=== PATIENT | female | born 1995 | race Caucasian/White ===

== ENCOUNTER 2018-10-20 07:54 | Emergency (ER) | payer SELFPAY ==
--- NOTE | 2018-10-20 08:55 | ER ---
Nurse's Notes [facility] Name: Blake Thakur Age: 23 yrs Sex: Female : 1995 Arrival Date: 10/20/2018 Time: 08:00 Bed 16 Private MD: Diagnosis: Acute upper respiratory infection, unspecified Presentation: 10/20 08:06 Presenting complaint: Patient states: Reports cough, congestion, bodyaches, fever, and rb1 sore throat x one day. Transition of care: patient was not received from another setting of care. Onset of symptoms was October 19, 2018. Risk Assessment: Do you want to hurt yourself or someone else? Patient reports no desire to harm self or others. Initial Sepsis Screen: Does the patient meet any 2 criteria? No. Patient's initial sepsis screen is negative. Does the patient have a suspected source of infection? Yes: Other: cough. Care prior to arrival: None. 08:06 Method Of Arrival: Ambulatory rb1 08:06 Acuity: NICHO 3 rb1 Triage Assessment: 08:06 General: Appears in no apparent distress. comfortable, Behavior is calm, cooperative, rb1 Reports fever for feeling ill for 1-2 days, fatigue for 1-2 days. Pain: Complains of pain in generalized body aches Pain currently is 6 out of 10 on a pain scale. Pain began 1 day ago. EENT: Reports sore throat. Neuro: Level of Consciousness is awake, alert, obeys commands, Oriented to person, place, time, situation. Cardiovascular: Capillary refill < 3 seconds is brisk in bilateral fingers. Respiratory: Reports cough that is non-productive, Airway is patent Respiratory effort is even, unlabored, Respiratory pattern is regular, symmetrical. GI: No signs and/or symptoms were reported involving the gastrointestinal system. : No signs and/or symptoms were reported regarding the genitourinary system. Derm: Skin is pink, warm \T\ dry. Musculoskeletal: Range of motion: intact in all extremities. 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 - Ebola Screening: : Patient negative for fever greater than or equal to 101.5 degrees Fahrenheit, and additional compatible Ebola Virus Disease symptoms. - Social history:: Smoking status: Patient/guardian denies using tobacco. Screenin:06 Abuse screen: Denies threats or abuse. Nutritional screening: No deficits noted. rb1 Tuberculosis screening: No symptoms or risk factors identified. Fall Risk None identified. Assessment: 08:06 General: See Triage assessment. rb1 09:00 Reassessment: Patient appears in no apparent distress at this time. No changes from rb1 previously documented assessment. Vital Signs: 08:06 BP 139 / 80; Pulse 97; Resp 16; Temp 99.6(O); Pulse Ox 100% on R/A; Weight 73.94 kg rb1 (R); Height 5 ft. 6 in. (167.64 cm); Pain 6/10; 09:00 BP 137 / 77; Pulse 89; Resp 16; Pulse Ox 100% ; rb1 08:06 Body Mass Index 26.31 (73.94 kg, 167.64 cm) rb1 ED Course: 08:00 Patient arrived in ED. as 08:03 Vicki Schwarz F[facility]-C [facility] kb 08:03 Puma Albrecht MD is Attending Physician. kb 08:06 Arm band placed on right wrist. rb1 08:06 Patient has correct armband on for positive identification. Bed in low position. Call rb1 light in reach. Side rails up X 1. Pulse ox on. NIBP on. 08:26 Hamida Padilla, RN is Primary Nurse. rb1 08:26 Flu Sent. rb1 08:26 Strep Sent. rb1 08:28 Triage completed. rb1 09:07 No provider procedures requiring assistance completed. Patient did not have IV access rb1 during this emergency room visit. Administered Medications: No medications were administered Outcome: 08:54 Discharge ordered by . kb 09:07 Discharged to home ambulatory. rb1 09:07 Condition: good 09:07 Discharge instructions given to patient, family, Instructed on discharge instructions, follow up and referral plans. Demonstrated understanding of instructions, follow-up care. 09:08 Patient left the ED. dm5 Signatures: Vicki Schwarz FNP-C FNP-Ckb Markwardt, Deana, RN RN dm5 Kaelyn Farley Rebecca, RN RN rb1
--- NOTE | 2018-10-20 08:55 | EDPHYS ---
Physician Documentation [facility] Name: Blake Thakur Age: 23 yrs Sex: Female : 1995 Arrival Date: 10/20/2018 Time: 08:00 Bed 16 Private MD: ED Physician Puma Albrecht HPI: 10/20 08:53 This 23 yrs old Female presents to ER via Ambulatory with complaints of Flu kb Symptoms. 08:53 The patient or guardian reports cough, that is intermittent, described as mild, with no kb sputum, flu symptoms, low-grade fever, myalgias. Onset: The symptoms/episode began/occurred yesterday. Severity of symptoms: At their worst the symptoms were moderate. Modifying factors: The symptoms are alleviated by nothing, the symptoms are aggravated by nothing. Associated signs and symptoms: Pertinent positives: earache, fever, rhinorrhea, sore throat. The patient has not experienced similar symptoms in the past. The patient has not recently seen a physician. 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 - Ebola Screening: : Patient negative for fever greater than or equal to 101.5 degrees Fahrenheit, and additional compatible Ebola Virus Disease symptoms. - Social history:: Smoking status: Patient/guardian denies using tobacco. ROS: 08:53 Neck: Negative for injury, pain, and swelling, Cardiovascular: Negative for chest pain, kb palpitations, and edema, Abdomen/GI: Negative for abdominal pain, nausea, vomiting, diarrhea, and constipation, Back: Negative for injury and pain, MS/Extremity: Negative for injury and deformity, Skin: Negative for injury, rash, and discoloration, Neuro: Negative for headache, weakness, numbness, tingling, and seizure. 08:53 Constitutional: Positive for body aches, chills, fatigue, fever, malaise, Negative for poor PO intake, weight loss. 08:53 ENT: Positive for rhinorrhea, sinus congestion, sore throat. 08:53 Respiratory: Positive for cough, Negative for dyspnea on exertion, hemoptysis, orthopnea, pleurisy, shortness of breath, sputum production, wheezing. Exam: 08:53 Constitutional: This is a well developed, well nourished patient who is awake, alert, kb and in no acute distress. Head/Face: Normocephalic, atraumatic. ENT: Nares patent. No nasal discharge, no septal abnormalities noted. Tympanic membranes are normal and external auditory canals are clear. Oropharynx with no redness, swelling, or masses, exudates, or evidence of obstruction, uvula midline. Mucous membranes moist. Neck: Trachea midline, no thyromegaly or masses palpated, and no cervical lymphadenopathy. Supple, full range of motion without nuchal rigidity, or vertebral point tenderness. No Meningismus. Chest/axilla: Normal chest wall appearance and motion. Nontender with no deformity. No lesions are appreciated. Cardiovascular: Regular rate and rhythm with a normal S1 and S2. No gallops, murmurs, or rubs. Normal PMI, no JVD. No pulse deficits. Respiratory: Lungs have equal breath sounds bilaterally, clear to auscultation and percussion. No rales, rhonchi or wheezes noted. No increased work of breathing, no retractions or nasal flaring. Abdomen/GI: Soft, non-tender, with normal bowel sounds. No distension or tympany. No guarding or rebound. No evidence of tenderness throughout. Skin: Warm, dry with normal turgor. Normal color with no rashes, no lesions, and no evidence of cellulitis. MS/ Extremity: Pulses equal, no cyanosis. Neurovascular intact. Full, normal range of motion. Neuro: Awake and alert, GCS 15, oriented to person, place, time, and situation. Cranial nerves II-XII grossly intact. Motor strength 5/5 in all extremities. Sensory grossly intact. Cerebellar exam normal. Normal gait. Vital Signs: 08:06 BP 139 / 80; Pulse 97; Resp 16; Temp 99.6(O); Pulse Ox 100% on R/A; Weight 73.94 kg rb1 (R); Height 5 ft. 6 in. (167.64 cm); Pain 6/10; 09:00 BP 137 / 77; Pulse 89; Resp 16; Pulse Ox 100% ; rb1 08:06 Body Mass Index 26.31 (73.94 kg, 167.64 cm) rb1 MDM: 08:04 Patient medically screened. kb 08:53 Data reviewed: vital signs, nurses notes. Data interpreted: Pulse oximetry: on room air kb is 100 %. Interpretation: normal. Counseling: I had a detailed discussion with the patient and/or guardian regarding: the historical points, exam findings, and any diagnostic results supporting the discharge/admit diagnosis, lab results, the need for outpatient follow up, a family practitioner, to return to the emergency department if symptoms worsen or persist or if there are any questions or concerns that arise at home. 10/20 08:11 Order name: Flu; Complete Time: 08:53 kb 10/20 08:11 Order name: Strep; Complete Time: 08:53 kb 10/20 08:51 Order name: Throat Culture EDMS Administered Medications: No medications were administered Disposition: 10:31 Co-signature as Attending Physician, Puma Albrecht MD I agree with the assessment and kdr plan of care. Disposition: 10/20/18 08:54 Discharged to Home. Impression: Acute upper respiratory infection, unspecified. - Condition is Stable. - Discharge Instructions: Upper Respiratory Infection, Adult, [id number], Viral Respiratory Infection, [id number]. - Medication Reconciliation Form, Thank You Letter, Antibiotic Education, Prescription Opioid Use form. - Follow up: Emergency Department; When: As needed; Reason: Worsening of condition. Follow up: Private Physician; When: 2 - 3 days; Reason: Recheck today's complaints, Continuance of care, Re-evaluation by your physician. Signatures: Dispatcher [employer] EDAZ Vicki Schwarz, MAROC-C CAR CONSTRUCTION SUPERINTENDENT-Yessi Earl, RN RN dm5 Puma Albrecht MD MD [facility] Hamida Padilla, RN RN rb1 Corrections: (The following items were deleted from the chart) 09:08 08:54 10/20/2018 08:54 Discharged to Home. Impression: Acute upper respiratory dm5 infection, unspecified. Condition is Stable. Forms are Medication Reconciliation Form, Thank You Letter, Antibiotic Education, Prescription Opioid Use. Follow up: Emergency Department; When: As needed; Reason: Worsening of condition. Follow up: Private Physician; When: 2 - 3 days; Reason: Recheck today's complaints, Continuance of care, Re-evaluation by your physician. kb
== END 2018-10-20 09:08 | disposition home or self-care (01) ==
LOC: ER 07:54
DX: J06.9 Acute upper respiratory infection, unspecified (principal)
CPT/HCPCS: 87070; 87081; 87804; 99283

== ENCOUNTER 2019-07-16 18:39 | Emergency (ER) | payer OTHER, SELFPAY ==
--- NOTE | 2019-07-16 20:12 | ER ---
Nurse's Notes [facility] Name: Blake Thakur Age: 23 yrs Sex: Female : 1995 Arrival Date: 07/16/2019 Time: 18:42 Bed 13 Private MD: Diagnosis: Acute upper respiratory infection, unspecified Presentation: 07/16 18:42 Presenting complaint: Patient states: productive green sputum cough, nasal congestion sv started Wednesday. Transition of care: patient was not received from another setting of care. Onset of symptoms was July 14, 2019. Risk Assessment: Do you want to hurt yourself or someone else? Patient reports no desire to harm self or others. Care prior to arrival: None. 18:42 Method Of Arrival: Ambulatory sv 18:42 Acuity: NICHO 3 sv Historical: - Allergies: 18:43 No Known Allergies; sv - PMHx: 18:43 None; sv - PSHx: 18:43 None; sv - Immunization history:: Flu vaccine is not up to date. - Social history:: Smoking status: Patient uses tobacco products, smokes one-half pack cigarettes per day. - Ebola Screening: : No symptoms or risks identified at this time. Screenin:00 Abuse screen: Denies threats or abuse. Nutritional screening: No deficits noted. jb4 Tuberculosis screening: No symptoms or risk factors identified. Fall Risk None identified. Assessment: 19:00 General: Appears in no apparent distress. uncomfortable, Behavior is calm, cooperative, jb4 appropriate for age. Pain: Denies pain. Neuro: Level of Consciousness is awake, alert, obeys commands, Oriented to person, place, time, situation. Cardiovascular: Patient's skin is warm and dry. Respiratory: Airway is patent Respiratory effort is even, unlabored, Respiratory pattern is regular, symmetrical, Breath sounds are clear bilaterally. GI: No signs and/or symptoms were reported involving the gastrointestinal system. : No signs and/or symptoms were reported regarding the genitourinary system. EENT: No signs and/or symptoms were reported regarding the EENT system. Derm: Skin is intact, Skin is pink, warm \T\ dry. Musculoskeletal: Circulation, motion, and sensation intact. Range of motion: intact in all extremities. 20:44 Reassessment: Patient appears in no apparent distress at this time. Patient and/or jb4 family updated on plan of care and expected duration. Pain level reassessed. Patient is alert, oriented x 3, equal unlabored respirations, skin warm/dry/pink. Vital Signs: 18:44 BP 134 / 77; Pulse 85; Resp 20; Temp 98.1(O); Pulse Ox 98% ; Weight 93.44 kg; Height 5 sv ft. 6 in. (167.64 cm); 20:44 BP 127 / 83; Pulse 86; Resp 16; Pulse Ox 95% on R/A; jb4 18:44 Body Mass Index 33.25 (93.44 kg, 167.64 cm) sv ED Course: 18:42 Patient arrived in ED. sv 18:43 Triage completed. sv 18:45 Arm band placed on. sv 19:00 Patient has correct armband on for positive identification. Bed in low position. Call jb4 light in reach. Side rails up X 1. 19:05 Kiko Vo MD is Attending Physician. tw4 19:16 Johnson Davis, RN is Primary Nurse. jb4 19:24 Flu Sent. jb4 20:44 No provider procedures requiring assistance completed. Patient did not have IV access jb4 during this emergency room visit. Administered Medications: No medications were administered Outcome: 20:11 Discharge ordered by . tw4 20:44 Discharged to home ambulatory, with significant other. jb4 20:44 Condition: stable 20:44 Discharge instructions given to patient, significant other, Instructed on discharge instructions, follow up and referral plans. medication usage, Demonstrated understanding of instructions, follow-up care, medications, Prescriptions given X 2. 20:46 Patient left the ED. jb4 Signatures: Rosie Cui RN RN Johnson Davis RN RN jb Kiko Vo MD MD 4 Corrections: (The following items were deleted from the chart) 18:45 18:44 Pulse 85bpm; Resp 20bpm; Pulse Ox 98%; Temp 98.1F Oral; 93.44 kg; Height 5 ft. 6 sv in.; BMI: 33.2; sv
--- NOTE | 2019-07-16 20:12 | EDPHYS ---
Physician Documentation [facility] Name: Blake Thakur Age: 23 yrs Sex: Female : 1995 Arrival Date: 07/16/2019 Time: 18:42 Bed 13 Private MD: ED Physician Kiko Vo HPI: 07/17 04:37 This 23 yrs old Female presents to ER via Ambulatory with complaints of tw4 Congestion, Cough. 04:37 The patient or guardian reports cough. Onset: The symptoms/episode began/occurred tw4 today. Severity of symptoms: At their worst the symptoms were mild, in the emergency department the symptoms are unchanged. Modifying factors: The symptoms are alleviated by nothing, the symptoms are aggravated by nothing. Associated signs and symptoms: The patient has no apparent associated signs or symptoms. The patient has not experienced similar symptoms in the past. Historical: - Allergies: 07/16 18:43 No Known Allergies; sv - PMHx: 18:43 None; sv - PSHx: 18:43 None; sv - Immunization history:: Flu vaccine is not up to date. - Social history:: Smoking status: Patient uses tobacco products, smokes one-half pack cigarettes per day. - Ebola Screening: : No symptoms or risks identified at this time. ROS: 07/17 04:37 Constitutional: Negative for fever, chills, and weight loss, Eyes: Negative for injury, tw4 pain, redness, and discharge, Cardiovascular: Negative for chest pain, palpitations, and edema, Abdomen/GI: Negative for abdominal pain, nausea, vomiting, diarrhea, and constipation, Back: Negative for injury and pain, MS/Extremity: Negative for injury and deformity, Skin: Negative for injury, rash, and discoloration, Neuro: Negative for headache, weakness, numbness, tingling, and seizure. Respiratory: Positive for cough, Negative for dyspnea on exertion, hemoptysis, orthopnea, pleurisy, shortness of breath, sputum production, wheezing. Exam: 04:37 Constitutional: This is a well developed, well nourished patient who is awake, alert, tw4 and in no acute distress. Head/Face: Normocephalic, atraumatic. Eyes: Pupils equal round and reactive to light, extra-ocular motions intact. Lids and lashes normal. Conjunctiva and sclera are non-icteric and not injected. Cornea within normal limits. Periorbital areas with no swelling, redness, or edema. ENT: Nares patent. No nasal discharge, no septal abnormalities noted. Tympanic membranes are normal and external auditory canals are clear. Oropharynx with no redness, swelling, or masses, exudates, or evidence of obstruction, uvula midline. Mucous membranes moist. Chest/axilla: Normal chest wall appearance and motion. Nontender with no deformity. No lesions are appreciated. Cardiovascular: Regular rate and rhythm with a normal S1 and S2. No gallops, murmurs, or rubs. Normal PMI, no JVD. No pulse deficits. Respiratory: Lungs have equal breath sounds bilaterally, clear to auscultation and percussion. No rales, rhonchi or wheezes noted. No increased work of breathing, no retractions or nasal flaring. Abdomen/GI: Soft, non-tender, with normal bowel sounds. No distension or tympany. No guarding or rebound. No evidence of tenderness throughout. Back: No spinal tenderness. No costovertebral tenderness. Full range of motion. MS/ Extremity: Pulses equal, no cyanosis. Neurovascular intact. Full, normal range of motion. Neuro: Awake and alert, GCS 15, oriented to person, place, time, and situation. Cranial nerves II-XII grossly intact. Motor strength 5/5 in all extremities. Sensory grossly intact. Cerebellar exam normal. Normal gait. Vital Signs: 07/16 18:44 BP 134 / 77; Pulse 85; Resp 20; Temp 98.1(O); Pulse Ox 98% ; Weight 93.44 kg; Height 5 sv ft. 6 in. (167.64 cm); 20:44 BP 127 / 83; Pulse 86; Resp 16; Pulse Ox 95% on R/A; jb4 18:44 Body Mass Index 33.25 (93.44 kg, 167.64 cm) sv MDM: 19:06 Patient medically screened. tw4 07/17 04:37 Differential Diagnosis: Bronchitis Influenza Upper Respiratory Infection Allergic tw4 Rhinitis Asthma Exacerbation Viral Syndrome. Data reviewed: vital signs, nurses notes. Data reviewed: lab test result(s), Flu: negative. Test interpretation: by ED physician or midlevel provider:. Counseling: I had a detailed discussion with the patient and/or guardian regarding: the historical points, exam findings, and any diagnostic results supporting the discharge/admit diagnosis. Special discussion: I discussed with the patient/guardian in detail that at this point there is no indication for admission to the hospital. It is understood, however, that if the symptoms persist or worsen the patient needs to return immediately for re-evaluation. 07/16 19:14 Order name: Flu twNoam Administered Medications: No medications were administered Disposition: 07/16/19 20:11 Discharged to Home. Impression: Acute upper respiratory infection, unspecified. - Condition is Stable. - Prescriptions for ProAir HFA 90 mcg/actuation Inhalation HFA aerosol inhaler - inhale 2 puff by INHALATION route every 4 hours; 1 Cartridge. Guaifenesin AC 10- 100 mg/5 mL Oral Liquid - take 10 milliliter by ORAL route every 4 hours As needed; 240 milliliter. - Medication Reconciliation Form, Thank You Letter, Antibiotic Education, Prescription Opioid Use form. - Follow up: Private Physician; When: Upon discharge from the Emergency Department; Reason: Recheck today's complaints, Continuance of care. - Problem is new. - Symptoms have improved. Signatures: Dispatcher [employer] EDMS Rosie Cui RN RN Johnson Davis RN RN jb4 Kiko Vo MD MD tw4 Corrections: (The following items were deleted from the chart) 07/16 20:46 20:11 07/16/2019 20:11 Discharged to Home. Impression: Acute upper respiratory jb4 infection, unspecified. Condition is Stable. Forms are Medication Reconciliation Form, Thank You Letter, Antibiotic Education, Prescription Opioid Use. Follow up: Private Physician; When: Upon discharge from the Emergency Department; Reason: Recheck today's complaints, Continuance of care. Problem is new. Symptoms have improved. tw4
[2019-07-16 21:10] VITALS: TEMP 98.1
[2019-07-16 21:11] VITALS: BP 127/83; O2SAT 95
== END 2019-07-16 20:46 | disposition home or self-care (01) ==
LOC: ER 18:39
DX: J06.9 Acute upper respiratory infection, unspecified (principal); F17.210 Nicotine dependence, cigarettes, uncomplicated
CPT/HCPCS: 87804; 99283

== ENCOUNTER 2020-08-09 | Emergency (ER) | payer OTHER, SELFPAY ==
--- OUTSIDE RECORDS SUMMARY | 2020-08-09 02:46 | XMS REPORT | Continuity of Care Document ---
:[address] [facility] t Address [address] [place] [address] [place] [id number] Care Team Providers Name Role Phone Unavailable Unavailable Unavailable Problems This patient has no known problems. Allergies, Adverse Reactions, Alerts This patient has no known allergies or adverse reactions. Medications This patient has no known medications. Procedures This patient has no known procedures. Results This patient has no known results.
--- NOTE | 2020-08-09 13:21 | ER ---
Nurse's Notes [facility] Name: Blake Thakur Age: 24 yrs Sex: Female : 1995 Arrival Date: 08/09/2020 Time: 02:47 Bed External Waiting Private MD: Diagnosis: ED Course: 08/09 02:47 Patient arrived in ED. am2 04:12 Otoniel Baltazar MD is Attending Physician. oj 06:16 Patient's name was called from ER lobby. No response. trinity 06:34 Patient's name was called from ER lobby. No response. [email or web address] Administered Medications: No medications were administered Outcome: 06:47 Patient left the ED. sg Signatures: Callie Austin RN RN Sixto Wood RN RN sg Anderson, Corey, MD MD cha Moreno, Amanda am2
== END 2020-08-09 06:47 | disposition left against medical advice (07) ==
DX: Z02.9 Encounter for administrative examinations, unspecified (principal)